=== PATIENT | male | born 1960 | race Caucasian/White ===

== ENCOUNTER 2025-03-22 05:28 | Observation (INO) ==
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
[~2025-03-22 05:28] MED LIST: General Order Problem(s) SCH
[2025-03-22] MEDS: LR 60ML/HR IV SCH (06:13)
[2025-03-22] MEDS: LR 500ML BOLUS, THEN 15ML/HR IV SCH (06:13)
[2025-03-22] MEDS: dexAMETHasone**PF** 10 MG/ML VIAL IV SCH (06:14)
[2025-03-22] MEDS: CeleBREX 200 MG CAP PO SCH (06:14)
[2025-03-22] MEDS: ACETAMINOPHEN 500 MG TAB PO SCH ×2 (06:14→13:17)
[2025-03-22] MEDS: GABAPENTIN 600 MG DOSE PO SCH (06:14)
[2025-03-22] MEDS: METOCLOPRAMIDE HCL 10 MG TABLET PO SCH (06:14)
[2025-03-22] MEDS: FAMOTIDINE 20 MG TAB PO SCH (06:15)
[2025-03-22] MEDS ORDERED: BUPIVACAINE 0.5 % 5 MG/1 ML PF 10ML VIAL ONE (06:32)
[2025-03-22] MEDS ORDERED: ROPIVACAINE 0.5% 5 MG/ML 30 ML VIAL ONE (06:32)
[2025-03-22] MEDS ORDERED: PROPOFOL IV EMULSION 10 MG/ML 20 ML VIAL IV ONE (06:44)
[2025-03-22] MEDS ORDERED: LIDOCAINE 2% 2 ML VIAL/AMP(20MG/ML) INFIL ONE (06:44)
[2025-03-22] MEDS ORDERED: MIDAZOLAM HCL 1 MG/ML 2ML VIAL ONE (06:45)
[2025-03-22] MEDS ORDERED: ONDANSETRON INJ 2 MG/ML 2 ML VIAL IV PRN ×2 (06:51→11:57)
[2025-03-22] MEDS ORDERED: ATROPINE SULFATE 0.1 MG/ML 10ML SYR IV PRN (06:51)
[2025-03-22] MEDS: TRANEXAMIC ACID 1,000 MG **IV Pre-op IV SCH (07:03)
--- NOTE | 2025-03-22 07:04 | History & Physical Bridge Note ---
Date of Service March 22, 2025 History & Physical Bridge Note I have examined the patient, reviewed the History & Physical and in the interval since the performance of the History & Physical I have noted the following changes of clinical significance: no changes noted
[2025-03-22] MEDS: ceFAZolin 3000MG 3,000 MG/72.5 ML BAG IV SCH (07:19)
[2025-03-22] MEDS: ORTHO JOINT ANESTHETIC ONE (08:05)
[2025-03-22] MEDS ORDERED: PROPOFOL IV EMULSION 10 MG/ML 100 ML VIAL IV ONE (09:26)
[2025-03-22] MEDS: ROPIVACAINE 0.5% HCL/PF 246 MG, Ketorolac (*for OR use only*) 30 MG in SODIUM CHLORIDE ... INFIL SCH (09:31)
--- NOTE | 2025-03-22 10:46 | Post Operative Brief Note ---
Immediate Post Op Note Date of Surgery March 22, 2025 Pre & Post Diagnosis Operation Date: 03/22/25 07:15 Pre-Op Diagnosis: Right Knee Degenerative Joint Disease, Anila slaughters, obesity BMI 44.9 Post-Op Diagnosis: Right Knee Degenerative Joint Disease, Anila slaughters, obesity BMI 44.9 I identified the patient and participated in the time-out.: Yes Procedure Operation Date: 03/22/25 07:15 Actual Procedures p Right Total Knee Arthroplasty(Right), increased difficulty BMI 44.9 and Anila slaughters condition.- Jason Perry MD Surgeon Jason Perry MD [employer] Luís DELGADILLO Estimated Blood Loss 50 Findings Consistent with Post-Op Diagnosis Specimens Bone cuts Drains Hemovac Drain Anesthesia Type MAC Spinal Regional Complications none Disposition Disposition: Recovery Room Overlapping Procedure I was immediately available: during the entire case.
--- NOTE | 2025-03-22 11:10 | Operative Report ---
Post Operative Report Pre & Post Diagnosis Operation Date: 03/22/25 07:15 Pre-Op Diagnosis: Right Knee Degenerative Joint Disease, Colona slaughters, obesity BMI 44.9 Post-Op Diagnosis: Right Knee Degenerative Joint Disease, Colona slaughters, obesity BMI 44.9 I identified the patient and participated in the time-out.: Yes Procedure Operation Date: 03/22/25 07:15 Actual Procedures p Right Total Knee Arthroplasty(Right), increased difficulty due to Anila slaughters condition and obesity BMI 44.9- Jason Perry MD Surgeon Jason Perry MD Options Advisor Luís DELGADILLO Estimated Blood Loss 50 Findings Consistent with Post-Op Diagnosis Specimens Bone cuts Drains 2 Hemovac Anesthesia Type MAC Spinal Regional Complications none Disposition Disposition: Recovery Room Indications 64 male with severe end-stage osteoarthritis right knee. He had a left knee replacement years ago and the right knee he put off and now has marked bone loss medial compartment with a varus knee flexion contracture and limited range of motion. Patient has tricompartmental osteoarthritis. Description of Procedure Patient taken to the operating room the size under spinal MAC regional block anesthesia. Patient was placed supine on the operating table. A pneumatic tourniquet was placed about the obese right upper thigh. The right lower extremity was prepped and draped in sterile fashion. Knee exam demonstrated 15 to 105 degrees with mild pseudolaxity with valgus stress consistent with bone loss in the medial compartment. Patient had anterior patellar spurs and Colona Patel prominent tibial tubercle. The leg was elevated exsanguinated with an Esmarch bandage and pneumatic tourniquet was raised to 350 millimeters of mercury. Skin incised sharply in longitudinal fashion. Subcutaneous flaps elevated. Some scarred bands of prepatellar bursa were resected over the tibial tubercle and patella area. Incision was made through the medial retinaculum extending up in the mid third of the quadriceps tendon and down to the medial tibial tubercle. Intra-articular findings demonstrated multiple loose bodies in the gutters and suprapatellar pouch and a large superior osteophyte on the patella. There was chronic medial and lateral meniscus tears chronic ACL tear Notch stenosis [id number] in all compartments with significant bone loss from the medial femoral condyle and medial tibial plateau more toward the flexion surface of the medial tibial plateau on the tibia. The iNEWiT triathlon total knee arthroplasty system was used. To expose the knee a portion of the infrapatellar fat pad was resected. The meniscal remnants and posterior cruciate ligament were resected. All the loose bodies embedded into the synov ium were resected and the large superior patellar osteophyte removed. There was a ganglion cyst at the inferior pole of the patella within the fat pad that was resected. The anterior fat pad over the femur in the area of the location of the anterior flange of the femoral component was resected. The lateral synovial bands were released. The femur was exposed. The notch osteophytes were removed with a curved osteotome. An intramedullary drill hole was made into the canal. A guide concepción was placed. Distal femoral cutting guide was adjusted to resect a 5 degree valgus cut with 10 millimeters distal femur resected due to the flexion contracture. The knee was extended and a subperiosteal peel lateral release was performed around the patella. Patella width was measured and width was reproduced using a freehand cut technique and a 35 x 10 asymmetric patella component. The 3 drill holes were made and the excess lateral facet was beveled off to prevent any impingement. Attention was taken back to the femur which was exposed with retractors and the femoral sizing guide was pinned in position. The drill holes were placed in 3 of external rotation to match the epicondylar axis. The femur sized for a 6 component. The 4-in-1 cutting block was placed and then the anterior posterior and chamfer cuts are made. Bone was very sclerotic and hard. The tibia was then subluxed. The external tibial cutting guide was adjusted to make a perpendicular cut to the long axis of the tibia. This cut was made above the level of the most efficient side and consideration for an augment was made initially. Cut was adjusted for slope. A lamina pump service supervisor was used and the flexion extension gaps were assessed. Medial and posterior medial releases were required to assist in balancing. All posterior osteophytes were removed with a curved osteotome and an angled curette. It appeared that more tibia could be resected so I reexposed the tibia again and readjusted the external tibial cutting guide to resect few more millimeters of the tibia and this left a small crescent area of sloped bone medially that was underlying the most medial edge of the implant only and I felt there was enough bone coverage that we did not need an augment but would add a stem to the tibia and place drill holes in the sclerotic bone for cement fixation enhancement. the trial tibial component size 6 was maximally externally rotated in line with the tibial tubercle and pinned in position. The drill and punch for stem was used. The notch cutting device was centered appropriately and the femoral notch cut was made. The femoral trial was inserted. Trial tibial inserts were placed and size 16 gave balanced ligaments through flexion and extension. Patella tracking was assessed. The patella tracked centrally. The trial components were then removed and the orthomix anesthetic cocktail was injected per protocol. The knee was then copiously irrigated with pulsatile lavage saline solution. Final components were then cemented with Refobacin cement. Xperience irrigation placed over metal components prior to polyethylene insertion. Final components were triathlon size 6 right posterior stabilized femoral component with a 6 universal tibial baseplate with a 12 x 75 mm stem and a 35 x 10 mm asymmetric polyethylene patella and a X.3 polyethylene 6 x 16 mm tibial bearing posterior stabilized insert. After the cement cured further pulsatile lavage irrigation was then performed with Xperience and 2 Hemovac drains were brought out laterally. The tourniquet was let down and hemostasis was obtained coagulating all noted bleeders. The quadriceps tendon and medial retinaculum were closed with #2 FiberWire [id number]-[id number] sutures along the medial retinaculum medial side of the patella and distal quadriceps tendon and an additional [id number]-[id number] suture at the apex of the quadriceps tendon split proximally and an additional ulzueq-qh-[id number] suture at the level of the tibial polyethylene in the patella tendon. a 0 running locking STRATAFIX suture was placed starting at the proximal split in the quadriceps tendon extending down to the inferior pole the patella and then below that level [id number] #1 Vicryl sutures were utilized to repair the medial retinaculum to the patella tendon. The knee was taken through full range of motion and the repair was secure. Knee range of motion was 0 through 125 degrees. The subcutaneous tissues were closed with 2-0 Vicryl sutures. Skin was closed with surgical charanjit. Silverlon sterile dressing was applied. The patient tolerated the procedure well. Luís DELGADILLO was my physician assistant auto center manager who participated as fleet assistant and was involved in all aspects of the procedure including patient positioning prepping and draping,leg positioning ,soft tissue retraction and instrument management and participated in the closing and dressing application and will participate in postoperative care of the patient. Was an increased level difficulty due to the Anila-Schlatter's condition the bone loss medial compartment and the tightness and scar tissue of the knee and the obesity which added 1 hour to the procedure. The patient tolerated the procedure well. I attest to the content of the Intraoperative Record and any orders documented therein. Any exceptions are noted below.
[2025-03-22] MEDS: HYDROmorphone INJ 1 MG/ML SYRINGE IV PRN (11:13)
--- NOTE | 2025-03-22 11:23 | Anesthesiology Progress Note ---
Date of Service March 22, 2025 Anesthesia Post Procedure Vital Signs Vital Signs: Temp Pulse Pulse Resp BP Pulse Ox O2 Del Method 03/22/25 11:10 63 14 109/67 96 Room Air 03/22/25 11:00 36.4 C L 74 17 107/67 95 Room Air 03/22/25 10:50 67 11 L 121/68 94 Room Air 03/22/25 10:40 36.1 C L 67 9 L 111/73 100 Oxymask 03/22/25 05:58 36.8 C 65 20 126/69 94 Room Air O2 Flow Rate 03/22/25 11:10 03/22/25 11:00 03/22/25 10:50 03/22/25 10:40 10 03/22/25 05:58 Pain Intensity Right Knee: Pain Intensity: 5 Transfer of Care Handoff Completed per policy Notes Mental Status: alert / awake / arousable and participated in evaluation Patient Amnestic to Procedure: Yes Nausea / Vomiting: adequately controlled Pain: adequately controlled Airway Patency, RR, SpO2: stable & adequate BP & HR: stable & adequate Hydration State: stable & adequate Neuraxial Anesthesia: was administered and sensory block is resolving Anesthetic Complications: no major complications apparent and Pt Satisfied with anesthetic care
--- NOTE | 2025-03-22 11:27 | XRay Report ---
XR knee RT 1 or 2V routine CLINICAL HISTORY: Surgical Post Op COMPARISON: None FINDINGS: Left knee prosthesis shows no hardware complication. There is expected soft tissue gas. Sk in charanjit are present. IMPRESSION: Unremarkable postoperative exam. ACT 112: Negative or not required by law. Electronically signed by: Oren Jackson M.D. 03/22/2025 11:26 AM
[2025-03-22] MEDS ORDERED: MAGNESIUM HYDROXIDE SUSP 30 ML UDC PO PRN (11:57)
[2025-03-22] MEDS ORDERED: diphenhydrAMINE Capsule 25 MG CAP PO PRN (11:57)
[2025-03-22] MEDS ORDERED: ALUMINUM/MAGNESIUM SUSP 30 ML UDC PO PRN (11:57)
[2025-03-22] MEDS ORDERED: NALOXONE HCL 0.4 MG/1 ML VIAL/CARP IV PRN (11:57)
[2025-03-22] MEDS ORDERED: METOCLOPRAMIDE HCL INJ 5 MG/ML 2 ML VIAL IV PRN (11:57)
[2025-03-22] MEDS ORDERED: TAMSULOSIN HCL 0.4 MG CAP PO PRN (11:57)
[2025-03-22] MEDS: SODIUM CHLORIDE 0.9% 1,000 ML IV SCH (12:24)
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
[2025-03-22] MEDS: KETOROLAC TROMETHAMINE 15 MG/ML VIAL IV PRN (16:38)
[2025-03-22] MEDS: TRANEXAMIC ACID / 0.7% NACL 1,000 MG/100 ML BAG IV SCH (17:19)
[2025-03-22] MEDS: METAXALONE 800 MG TABLET PO SCH (19:43)
[2025-03-22] MEDS: ASPIRIN 81 MG ECTAB PO SCH (19:43)
[2025-03-22] MEDS: HYDROmorphone INJ 0.5 MG/0.5 ML SYR IV PRN (19:47)
[2025-03-22] MEDS: DOCUSATE SODIUM 100 MG CAP PO SCH (20:07)
[2025-03-22] MEDS: POTASSIUM CHLORIDE CRTAB 20 MEQ TABCR PO SCH (20:07)
[2025-03-22] MEDS: SENNA 8.6 MG TAB PO SCH (20:07)
[2025-03-22] MEDS: MELATONIN 3 MG TAB PO SCH (20:08)
[2025-03-22] MEDS: VENLAFAXINE HCL XR 75 MG CAPXR PO SCH (20:08)
[2025-03-23 07:21] VITALS: BP 125/78; PULSE 58; RESP 18; TEMP 97.7; O2SAT 96
[2025-03-23 07:45] LABS: Anion Gap 7.0 (3-11); Blood Urea Nitrogen 22.0 mg/dl (6-23); Calcium 8.6 mg/dl (8.6-10.3); Carbon Dioxide 26.0 mmol/L (21-32); Chloride 105.0 mmol/L (98-107); Creatinine Clr Calc Pharmacy 81.1 ml/min; Glucose 121.0 mg/dl (70-99(Fasting)); Potassium 3.6 mmol/L (3.5-5.1); Sodium 138.0 mmol/L (136-145)
[2025-03-23] MEDS: METOPROLOL TARTRATE 25 MG TAB PO SCH (07:46)
[2025-03-23] MEDS: VITAMIN B COMPLEX TAB PO SCH (07:50)
[2025-03-23] MEDS: MAGNESIUM OXIDE 400 MG TAB PO SCH (07:52)
[2025-03-23] MEDS: MULTIVITAMIN TAB PO SCH (07:52)
[2025-03-23] MEDS: OMEGA-3 (PURIFIED FISH OIL) 1 GM CAP PO SCH (07:52)
[2025-03-23] MEDS: dexAMETHasone 10 MG in SYRINGE 0 ML IV SCH (07:53)
[2025-03-23 08:14] LABS: Hematocrit (blood only) 30.3 % (42.0-52.0); Hemoglobin 9.8 g/dl (14.0-18.0); Mean Corpuscular Hemoglobin 26.0 pg (25.0-34.0); Mean Corpuscular Volume 80.4 fL (80.0-100.0); Platelet Count 162 K/uL (130-400); RDW Standard Deviation 51.7 fL (36.4-46.3); Red Blood Count 3.77 M/uL (4.70-6.10); White Blood Count 10.76 K/ul (4.8-10.8)
[2025-03-23] MEDS: TRIAMTERENE/HCTZ 37.5/25MG TAB PO SCH (08:17)
--- NOTE | 2025-03-23 08:19 | Orthopedic Progress Note ---
Date of Service March 23, 2025 Assessment & Plan (1) Osteoarthritis of right knee: Plan: Postop day 1 total knee replacement increased difficulty due to bone loss and obesity. Patient doing well and Hemovac drain can be discontinued prior to discharge today. Will discharge home today. Follow-up 2 weeks for staple removal. Outpatient PT scheduled.. Severe end-stage osteoarthritis right knee with bone loss. Plan is total knee replacement. May need constrained polyethylene and likely stemmed cemented tibial component. (2) Status post left knee replacement: Admission and Anticipated Discharge Date Admission Date: March 22, 2025 Subjective No complaints had some pain last night improved with Toradol. Review of Systems Review of Systems: Feels well no medical issues, noncontributory Physical Exam Musculoskeletal: 0 to 85 degrees range of motion no exten sor lag dressing dry and intact distal circulation sensorimotor exam intact. Results & Data Vital Signs (Past 12 Hours) Vital Signs Temp Pulse Resp BP BP Pulse Ox O2 Del Method 03/23/25 07:21 36.5 C 58 L 18 125/78 96 Room Air 03/23/25 03:00 36.7 C 66 16 119/69 94 Room Air 03/22/25 23:00 36.8 C 65 18 135/72 95 Room Air Diagnostic Findings Well aligned cemented total knee replacement (1) Osteoarthritis of right knee Osteoarthritis type: primary Qualified Code(s): M17.11 - Unilateral primary osteoarthritis, right knee
== END 2025-03-23 10:32 | disposition home or self-care (01) ==
LOC: ASU 05:28 → 3E 05:28